=== PATIENT | female | born 1985 | race Hispanic/Latino ===

== ENCOUNTER 2016-07-04 19:17 | Emergency (ER) | payer MEDICAID, SELFPAY ==
[2016-07-04] MEDS ORDERED: Morphine Sulfate 2 MG/ML SYRINGE ONE ×2 (19:34→20:15)
[2016-07-04] MEDS ORDERED: Ondansetron HCl/PF 4 MG/2 ML Vial ONE (19:34)
[2016-07-04 19:49] LABS: #Basophils 0.1 thou/uL (0.0-0.2); #Eosinphils 0.1 thou/uL (0.0-0.7); #Lymphocytes 1.9 thou/uL (1.20-3.40); #Monocytes 0.6 thou/uL (0.11-0.59); #Neutrophils 8.8 thou/uL (1.40-6.50); %Basophils 0.5 % (0.0-1.0); %Eosinophils 1.1 % (0.0-10.0); %Monocytes 5.4 % (0.0-10.0); Hematocrit 33.7 % (36.0-47.0); Mean Platelet Volume 6.2 fL (7.4-10.4); Red Blood Cell (RBC) Count 3.91 mill/uL (4.20-5.40); White Blood Cell (WBC) Count 11.5 thou/uL (4.8-10.8)
[2016-07-04 20:06] LABS: ALT (SGPT) 129 U/L (0-55); AST (SGOT) 95 U/L (5-34); Alkaline Phosphatase 89 U/L (40-150); Anion Gap 14 mmol/L (10-20); BUN (Urea Nitrogen) 13 mg/dL (7.0-18.7); Bilirubin, Total 1.5 mg/dL (0.2-1.2); Calc. Creatinine Clearance 0 mL/min (70-130); Calcium 9.9 mg/dL (7.8-10.44); Carbon Dioxide 23 mmol/L (22-29); Chloride 103 mmol/L (98-107); Estimated GFR-MDRD Greater than 90; Globulin 3.4 g/dL (2.4-3.5); Protein, Total 7.6 g/dL (6.0-8.3)
[2016-07-04 20:35] LABS: Bilirubin Negative (Negative); Blood, Urine Moderate (Negative); Glucose, Urine (Dipstick) Negative (Negative); Ketone, Urine Negative (Negative); Nitrite Negative (Negative); Protein, Urine (Dipstick) > or equal to 300 mg/dL (Neg-Trace); Urobilinogen > or = 8.0 mg/dL (0.2-1.0)
[2016-07-04 20:42] LABS: RBC/HPF GREATER THAN 50-TNTC HPF (0-3); Squamous Epithelial 0-3 HPF (0-3); WBC/HPF 0-3 HPF (0-3)
[2016-07-04] MEDS ORDERED: Ketorolac Tromethamine 30 MG/ML VIAL ONE (20:56)
[2016-07-04] MEDS ORDERED: fentaNYL 50 mcg/hour Patch TD SCH (21:15)
--- NOTE | 2016-07-04 22:33 | ERRECORD ---
[facility] EMERGENCY RECORD HPI PELVIC PAIN (19:37 WMEI) CHIEF COMPLAINT: Patient presents for evaluation of pelvic pain. HISTORIAN: History provided by patient, dx with stage 4 cervical cancer recently has not started trt hop.4 days ago for uncontrolled pain has po morphine [place] rx but not helping. LOCATION: Symptoms are localized, most severe in the pelvic region. QUALITY: Pain is dull in nature. TIME COURSE: Gradual onset of symptoms, 1, days priror to arrival, There has been no change in the patient's symptoms over time. ASSOCIATED WITH: No associated fever, Associated with nausea. EXACERBATED BY: Patient's condition exacerbated by nothing. RELIEVED BY: Patient's condition relieved by nothing. ROS (19:39 WMEI) CONSTITUTIONAL: Historian denies fever, reports lethargy. EYES: Historian denies eye pain, denies eye discharge. ENT: Historian denies otalgia, denies rhinorrhea, denies sore throat. CARDIOVASCULAR: Historian denies chest pain, no radiation. RESPIRATORY: Historian denies cough, denies shortness of breath. GI: Historian reports abdominal pain, reports appetite changes, reports constipation. GENITOURINARY FEMALE: Historian denies dysuria, denies urgency. MUSCULOSKELETAL: Historian reports back pain, denies joint stiffness, denies joint swelling. SKIN: Historian denies skin changes, denies skin lesions. NEUROLOGIC: Historian denies confusion, denies focal weakness, denies mental status changes, denies paralysis. PSYCHIATRIC: Historian denies alcohol abuse, denies drug abuse. PAST MEDICAL HISTORY MEDICAL HISTORY: Notes: stage 4 cervical ca. (19:41 WMEI) FEMALE SURGICAL HISTORY: Surgical history of appendectomy, Surgical history of tubal ligation. (19:44 WMEI) PSYCHIATRIC HISTORY: not currently under outpatient psychiatric treatment, no history of suicidal ideations. (21:56 WMEI) FAMILY HISTORY: Family istory is not significant. (21:57 WMEI) KNOWN ALLERGIES No Known Drug Allergies (Unconfirmed) traMADol: Reaction: Rash, Severity: Moderate, Source: Patient CURRENT MEDICATIONS promethazine: TABLET : Strength - 25 mg : ORAL &a-1R&a+25V*p+0X*[id number]*c202B*c15G*c2P*p-0X&a-25V&a+1R Name: Pauline Marie : 1985 F30 MedRec: [id number] AcctNum: [id number] Prepared: Clarisa Jul 04, 2016 22:01 by Interface Page 1 of 3 pMD [facility] EMERGENCY RECORD Patient Dose: 1 tab(s) Oral every 6 hours.Last Taken: 07/04/16 1600. (20:26 CHOB) morphine: TABLET, EXTENDED RELEASE : Strength - 15 mg : ORAL Patient Dose: 1 tab(s) Oral 3 times a day.Last Taken: 07/04/16 1500. (20:27 CHOB) [place]: TABLET : Strength - 10 mg-325 mg : ORAL Patient Dose: 1-2 tab(s) Oral every 4 hours prn.Last Taken: 07/04/16 1600. (20:30 CHOB) VITAL SIGNS VITAL SIGNS: BP: 110/82, Pulse: 138, Resp: 18, Temp: 98.7 (Oral), Pain: 10 (Sharp), O2 sat: 99 on Room Air, Time: 07/04/2016 19:26. (19:26 CHOB) BP: 100/74, Pulse: 94, Resp: 20, O2 sat: 100 on Room Air, Time: 07/04/2016 20:29. (20:29 LSMI) BP: 115/86, Pulse: 100, Resp: 18, Pain: 8, O2 sat: 100 on Room Air, Time: 07/04/2016 21:00. (21:00 LSMI) BP: 111/78, Pulse: 95, Resp: 18, Temp: 98.5 (Oral), Pain: 7, O2 sat: 96 on Room Air, Time: 07/04/2016 21:32. (21:32 LSMI) PHYSICAL EXAM (19:40 WMEI) CONSTITUTIONAL: Vital signs reviewed. HEAD: Head exam included findings of head atraumatic, normocephalic. EYES: Extraocular muscles intact, Conjunctiva normal, Sclera normal. ENT: Ear exam normal, Nose exam normal, Pharynx exam normal. NECK: Neck exam included findings of normal range of motion, Trachea midline. RESPIRATORY CHEST: Breath sounds clear, Chest exam included findings of chest movement symmetrical. CARDIOVASCULAR: Cardiovascular exam included findings of heart rate regular rate and rhythm, Heart sounds normal. ABDOMEN FEMALE: Abdominal exam included findings of abdomen tender, diffusely, Bowel sounds, hypoactive. UPPER EXTREMITY: Upper extremity exam included findings of inspection normal, Range of motion normal, Motor strength normal. LOWER EXTREMITY: Lower extremity exam included findings of inspection normal, Range of motion normal, Motor strength normal. NEURO: Ishmael coma scale 15, Neuro exam findings include patient oriented to person, place and time, Speech normal, Gait normal. SKIN: Skin exam included findings of skin warm, dry, and normal in color. LYMPHATIC: Lymphatic exam normal. PSYCHIATRIC: Psychiatric exam included findings of patient oriented to person place and time, Normal affect, Judgment normal, Insight normal. &a-1R&a+25V*p+0X*[id number]*c202B*c15G*c2P*p-0X&a-25V&a+1R Name: Pauline Marie : 1985 F30 MedRec: [id number] AcctNum: [id number] Prepared: Clarisa Jul 04, 2016 22:01 by Interface Page 2 of 3 pMD [facility] EMERGENCY RECORD MEDICATION ADMINISTRATION SUMMARY Drug Name: Dilaudid injection, Dose Ordered: 1 mg, Route: IV Push, Status: Ordered, Time: 20:37 07/04/2016, Drug Name: Duragesic, Dose Ordered: 50 mcg, Route: Transdermal, Status: Given, Time: 21:20 07/04/2016, Drug Name: Toradol injection, Dose Ordered: 30 mg, Route: IV Push, Status: Given, Time: 20:59 07/04/2016, Drug Name: morphine intravenous, Dose Ordered: 6 mg, Route: IV Push, Status: Given, Time: 20:17 07/04/2016, Drug Name: *sodium chloride 0.9 % intravenous, Dose Ordered: 1 L, Route: IV Fluid Infusion, Status: Given, Time: 19:52 07/04/2016, Drug Name: morphine intravenous, Dose Ordered: 5 mg, Route: IV Push, Status: Given, Time: 19:47 07/04/2016, Drug Name: Zofran intravenous, Dose Ordered: 4 mg, Route: IV Push, Status: Given, Time: 19:45 07/04/2016, *Additional information available in notes, Detailed record available in Medication Service section. PROBLEM LIST No recorded problems DIAGNOSIS (21:32 WMEI) FINAL: PRIMARY: cancer pain. PRESCRIPTION No recorded prescriptions DISPOSITION PATIENT: Disposition Type: Discharge, Disposition: *Discharge Home. (21:32 WMEI) Call Back Status: 1 - First call attempted, Patient left the department. (21:54 LSMI) August: KODY=JHOAN Chester, Marla LSMI=JEFFREY Downey Leah WMEI=DO Yan William &a-1R&a+25V*p+0X*[id number]*c202B*c15G*c2P*p-0X&a-25V&a+1R Name: Pauline Marie : 1985 F30 MedRec: [id number] AcctNum: [id number] Prepared: Clarisa Jul 04, 2016 22:01 by Interface Page 3 of 3 pMD MTDD
--- NOTE | 2016-07-04 22:44 | PICIS ---
[facility] EMERGENCY RECORD TRIAGE (19:28 CHOB) TRIAGE NOTES: vaginal pain worsened today. (19:28 CHOB) PATIENT: Zip Code: [address]. (19:57) NAME: Pauline Marie, AGE: 30, GENDER: female, : Sat 1985, TIME OF GREET: Sun Jul 04, 2016 19:18, PREFERRED LANGUAGE: Telugu, RACE: or , ETHNICITY: or , ECODE BILLING MAP: [facility], SSN: [id number], KG WEIGHT: 51.71 (est.), PHONE: , , , PERSON ID: [id number], PCP: susie. (19:28 CHOB) PAYMENT: SJ[facility] Self Pay. (20:33) COMPLAINT: vaginal pain. (19:28 CHOB) ADMISSION: URGENCY: 3 Urgent, ADMISSION SOURCE: Home, TRANSPORT: CAR, BED: ER -04. (19:28 CHOB) PROVIDERS: TRIAGE NURSE: Marla Chester RN. (19:28 CHOB) VITAL SIGNS: BP 110/82, Pulse 138, Resp 18, Temp 98.7, (Oral), Pain 10, (Sharp), O2 Sat 99, on Room Air, Time 07/04/2016 19:26. (19:26 CHOB) KNOWN ALLERGIES No Known Drug Allergies (Unconfirmed) traMADol: Reaction: Rash, Severity: Moderate, Source: Patient CURRENT MEDICATIONS promethazine: TABLET : Strength - 25 mg : ORAL Patient Dose: 1 tab(s) Oral every 6 hours.Last Taken: 07/04/16 1600. (20:26 CHOB) morphine: TABLET, EXTENDED RELEASE : Strength - 15 mg : ORAL Patient Dose: 1 tab(s) Oral 3 times a day.Last Taken: 07/04/16 1500. (20:27 CHOB) Sugar Tree: TABLET : Strength - 10 mg-325 mg : ORAL Patient Dose: 1-2 tab(s) Oral every 4 hours prn.Last Taken: 07/04/16 1600. (20:30 CHOB) VITAL SIGNS VITAL SIGNS: BP: 110/82, Pulse: 138, Resp: 18, Temp: 98.7 (Oral), Pain: 10 (Sharp), O2 sat: 99 on Room Air, Time: 07/04/2016 19:26. (19:26 CHOB) BP: 100/74, Pulse: 94, Resp: 20, O2 sat: 100 on Room Air, Time: 07/04/2016 20:29. (20:29 LSMI) BP: 115/86, Pulse: 100, Resp: 18, Pain: 8, O2 sat: 100 on Room Air, Time: 07/04/2016 21:00. (21:00 LSMI) BP: 111/78, Pulse: 95, Resp: 18, Temp: 98.5 (Oral), Pain: 7, O2 sat: 96 on Room Air, Time: 07/04/2016 21:32. (21:32 LSMI) NURSING PROCEDURE: COMMUNICATIONS (20:38 LSMI) &a-1R&a+25V*p+0X*e2635C*c202B*c15G*c2P*p-0X&a-25V&a+1R Name: Pauline Marie David : 1985 F30 MedRec: [id number] AcctNum: [id number] Prepared: Clarisa Jul 04, 2016 22:07 by Interface Page 1 of 8 D [facility] EMERGENCY RECORD COMMUNICATIONS: Notes: PTS ONCOLOGIST CALLED. DR GOLD. CALLED DIRECTLY ON HER CELL PHONE. NURSING PROCEDURE: DISCHARGE NOTE (21:41 LSMI) DISCHARGE: Patient discharged to home, ambulating with assistance, family driving, accompanied by //partner, Summary of Care printed/ provided, Transition record given to patient, Discharge instructions given to patient, Complex discharge teaching performed, by CRISTEL CHESTER RN ANGELLA DOWNEY BOTTOM WHEELER, Above person(s) verbalized understanding of discharge instructions and follow-up care, Patient treated and evaluated by physician, Notes: PT DC'D WITH INSTRUCTIONS GIVEM TO PT AND SPOUSE WHO BOTH VERBALIZE UNDERSTANDING OF INSTRUCTIONS. DURAGESIC PATCH 50MCG/HR IN PLACE TO RGHT SHOULDER ON DC. NO DISTRESS IS NOTED. NURSING PROCEDURE: IV PATIENT IDENITIFIER: Patient actively involved in identification process, Patient's identity verified by patient stating name, Patient's identity verified by patient stating date, Patient's identity verified by hospital ID bracelet, Patient's identity verified by family member. (19:45 LSMI) IV SITE 1: IV therapy indicated for hydration, IV therapy indicated for medication administration, IV established, to the right wrist, using a 20 gauge catheter, in one attempt, Saline lock established, Flushed with normal saline (mls): 10, Notes: IV STARTED BY CRISTEL CHESTER RN. (19:45 LSMI) FOLLOW-UP SITE 1: IV discontinued, due to patient being discharged, catheter intact. (21:41 LSMI) NURSING PROCEDURE: NURSE NOTES (20:15 LSMI) NURSES NOTES: Notes: ASSISTED PT UP TO BATHROOM TO VOID WITHOUT DIFFICULTY. BACK TO BED. PT STATES LITTLE RELIEF FROM IVPAIN MED. DR KAHN. NURSING PROCEDURE: URINE COLLECTION (20:12 LSMI) PATIENT IDENTIFIER: Patient actively involved in identification process, Patient's identity verified by patient stating name, Patient's identity verified by patient stating date, Patient's identity verified by hospital ID paul, Patient's identity verified by family member. URINE COLLECTION FEMALE: Urine collection indicated for hematuria with clots, Urine collected by mid-stream clean catch, Output amount (mL) 50, urine red in color, and bloody, Specimen labeled in the presence of the patient and sent to lab, Specimen obtained for culture labeled in the presence of the patient and sent to lab. ORDER DETAILS Order Name: CBC with Differential, Status: Active, Time: 19:33 07/04/2016, User: MARIAELENA, &a-1R&a+25V*p+0X*t0800Z*c202B*c15G*c2P*p-0X&a-25V&a+1R Name: Pauline Marie : 1985 F30 MedRec: [id number] AcctNum: [id number] Prepared: Clarisa Jul 04, 2016 22:07 by Interface Page 2 of 8 pMD [facility] EMERGENCY RECORD - Ordered for: DO Yan William, - Entered by: DO Yan William - Clarisa Jul 04, 2016 19:33, - Quantity: 1, Order Name: Comprehensive Metabolic Panel, Status: Active, Time: 19:33 07/04/2016, User: MARIAELENA, - Ordered for: DO Yan William, - Entered by: DO Yan William - [place] Jul 04, 2016 19:33, - Quantity: 1, Order Name: SALINE LOCK, Status: Done, Time: 19:35 07/04/2016, User: KODY, - Ordered for: DO Yan William, - Entered by: DO Yan William - [place] Jul 04, 2016 19:33, - Quantity: 1, Order Name: Urinalysis with Microscopic, Status: Active, Time: 19:33 07/04/2016, User: [facility], - Ordered for: DO Yan William, - Entered by: DO Yan William - [place] Jul 04, 2016 19:33, - Quantity: 1. MEDICATION ADMINISTRATION SUMMARY Drug Name: Dilaudid injection, Dose Ordered: 1 mg, Route: IV Push, Status: Ordered, Time: 20:37 07/04/2016, Drug Name: Duragesic, Dose Ordered: 50 mcg, Route: Transdermal, Status: Given, Time: 21:20 07/04/2016, Drug Name: Toradol injection, Dose Ordered: 30 mg, Route: IV Push, Status: Given, Time: 20:59 07/04/2016, Drug Name: morphine intravenous, Dose Ordered: 6 mg, Route: IV Push, Status: Given, Time: 20:17 07/04/2016, Drug Name: *sodium chloride 0.9 % intravenous, Dose Ordered: 1 L, Route: IV Fluid Infusion, Status: Given, Time: 19:52 07/04/2016, Drug Name: morphine intravenous, Dose Ordered: 5 mg, Route: IV Push, Status: Given, Time: 19:47 07/04/2016, Drug Name: Zofran intravenous, Dose Ordered: 4 mg, Route: IV Push, Status: Given, Time: 19:45 07/04/2016, *Additional information available in notes, Detailed record available in Medication Service section. MEDICATION SERVICE Dilaudid injection: Order: Dilaudid injection (hydromorphone HCl) - Dose: 1 mg : IV Push POTENTIAL ALLERGY REACTION: 'traMADol [tramadol/tramadol HCl]' - tolerated before Schedule: Now Ordered by: Regino Yan DO Entered by: Regino Yan DO [place] Jul 04, 2016 20:37 , Acknowledged by: Marla Chester RN [place] Jul 04, 2016 20:38. Duragesic: Order: Duragesic (fentanyl) - Dose: 50 mcg : Transdermal Schedule: Now &a-1R&a+25V*p+0X*s3336K*c202B*c15G*c2P*p-0X&a-25V&a+1R Name: Pauline Marie : 1985 F30 MedRec: [id number] AcctNum: [id number] Prepared: Clarisa Jul 04, 2016 22:07 by Interface Page 3 of 8 pMD [facility] EMERGENCY RECORD Ordered by: Regino Yan DO Entered by: DO Clarisa Rodrigues Jul 04, 2016 20:47 , Acknowledged by: JHOAN Ochoa Jul 04, 2016 20:54 Documented as given by: JHOAN Ochoa Jul 04, 2016 21:20 Patient, Medication, Dose, Route and Time verified prior to administration. Medication applied transdermally topically, Amount given: 50MCG, Administration of this medication is documented elsewhere in chart, Skin cleansed prior to administration, Correct patient, time, route, dose and medication confirmed prior to administration, Patient advised of actions and side-effects prior to administration, Allergies confirmed and medications reviewed prior to administration, Advised not to ambulate without assistance, Patient in position of comfort, Side rails up, Cart in lowest position, Family at bedside, Call light in reach. : Follow Up : Response assessment performed, No signs or symptoms of allergic reaction noted, No change in pain, No change in symptoms, DURAGESIC PATCH 50MCG/HR INTACT TO R BACK ON DC. TIMED AND DATED. (21:41 LSMI) morphine intravenous: Order: morphine intravenous (morphine sulfate) - Dose: 5 mg : IV Push POTENTIAL ALLERGY REACTION: 'traMADol [tramadol/tramadol HCl]' - pt takes morphine regularly Schedule: Now Ordered by: Regino Yan DO Entered by: DO Clarisa Rodrigues Jul 04, 2016 19:35 , Acknowledged by: JHOAN Ochoa Jul 04, 2016 19:36 Documented as given by: JHOAN Ochoa Jul 04, 2016 19:47 Patient, Medication, Dose, Route and Time verified prior to administration. Amount given: 5mg, IV SITE #1 IVP, initial medication, Slowly, Pre-administration assessment shows O2 saturation reading 99%, Pre-administration assessment shows O2 AMT: R.A., Pre-administration assessment shows on room air, Awake and alert- acceptable, Connections checked prior to administration, Line traced prior to administration, Catheter placement confirmed via flush prior to administration, IV site without signs or symptoms of infiltration during medication administration, No swelling during administration, No drainage during administration, IV flushed after administration, Correct patient, time, route, dose and medication confirmed prior to administration, Patient advised of actions and side-effects prior to administration, Allergies confirmed and medications reviewed prior to administration, Patient in position of comfort, Side rails up, Cart in lowest position, Family at bedside, Call light in reach, continuous pulse oximeter finger probe in place. pain to vagina/low pelvic pain 04/05. morphine intravenous: Order: morphine intravenous (morphine sulfate) - Dose: 6 mg : IV Push POTENTIAL ALLERGY REACTION: 'traMADol [tramadol/tramadol HCl]' - takes as outpt &a-1R&a+25V*p+0X*b9070H*c202B*c15G*c2P*p-0X&a-25V&a+1R Name: Pauline Marie David : 1985 F30 MedRec: [id number] AcctNum: [id number] Prepared: Clarisa Jul 04, 2016 22:07 by Interface Page 4 of 8 D [facility] EMERGENCY RECORD Schedule: Now Ordered by: Regino Yan DO Entered by: DO Clarisa Rodrigues Jul 04, 2016 20:15 Documented as given by: JHOAN Ochoa Jul 04, 2016 20:17 Patient, Medication, Dose, Route and Time verified prior to administration. Amount given: 6mg, IV SITE #1 IVP, subsequent different medication, Slowly, Pre-administration assessment shows O2 saturation reading 99%, Pre-administration assessment shows O2 AMT: R.A., Pre-administration assessment shows on room air, Awake and alert- acceptable, Connections checked prior to administration, Line traced prior to administration, Catheter placement confirmed via flush prior to administration, IV site without signs or symptoms of infiltration during medication administration, No swelling during administration, No drainage during administration, IV flushed after administration, Correct patient, time, route, dose and medication confirmed prior to administration, Patient advised of actions and side-effects prior to administration, Allergies confirmed and medications reviewed prior to administration, Patient in position of comfort, Side rails up, Cart in lowest position, Family at bedside, Call light in reach. sodium chloride 0.9 % intravenous: Order: sodium chloride 0.9 % intravenous (0.9 % sodium chloride) - Dose: 1 L : IV Fluid Infusion Notes: (Bolus) Ordered by: Regino Yan DO Entered by: Regino Yan DO [place] Jul 04, 2016 19:33 , Acknowledged by: Marla Chester RN [place] Jul 04, 2016 19:36 Documented as given by: Marla Chester RN [place] Jul 04, 2016 19:52 Patient, Medication, Dose, Route and Time verified prior to administration. Amount given: 1 liter, IV SITE #1 IV fluids established for hydration, IV SITE #1 into right forearm, IV SITE #1 1st bag hung, amount 1 Liter hung, IV SITE #1 bolus of 1000 ml established, via primary tubing, Connections checked prior to administration, Line traced prior to administration, Catheter placement confirmed via flush prior to administration, IV site without signs or symptoms of infiltration during medication administration, No swelling during administration, No drainage during administration, IV flushed after administration, Correct patient, time, route, dose and medication confirmed prior to administration, Patient advised of actions and side-effects prior to administration, Allergies confirmed and medications reviewed prior to administration, Patient in position of comfort, Side rails up, Cart in lowest position, Family at bedside, Call light in reach. : Follow Up : Response assessment performed, No signs or symptoms of allergic reaction noted, _IV SITE #1:_, IV fluid infusion discontinued, on [place] Jul 04, 2016 21:00, Total fluid hydration time IV site 1 1 hour, 10 minutes, ., Total amount infused: 1000, IV Line flushed after administration. (21:00 LSMI) Toradol injection: Order: Toradol injection (ketorolac &a-1R&a+25V*p+0X*a8979B*c202B*c15G*c2P*p-0X&a-25V&a+1R Name: Pauline Marie : 1985 F30 MedRec: [id number] AcctNum: [id number] Prepared: [place] Jul 04, 2016 22:07 by Interface Page 5 of 8 pMD [facility] EMERGENCY RECORD tromethamine) - Dose: 30 mg : IV Push Schedule: Now Ordered by: Regino Yan DO Entered by: DO Clarisa Rodrigues Jul 04, 2016 20:56 Documented as given by: JHOAN Ochoa Jul 04, 2016 20:59 Patient, Medication, Dose, Route and Time verified prior to administration. Amount given: 30MG, IV SITE #1 IVP, initial medication, Slowly, Connections checked prior to administration, Line traced prior to administration, Catheter placement confirmed via flush prior to administration, IV site without signs or symptoms of infiltration during medication administration, No swelling during administration, No drainage during administration, IV flushed after administration, Correct patient, time, route, dose and medication confirmed prior to administration, Patient advised of actions and side-effects prior to administration, Allergies confirmed and medications reviewed prior to administration, Patient in position of comfort, Side rails up, Cart in lowest position, Family at bedside, Call light in reach. Zofran intravenous: Order: Zofran intravenous (ondansetron HCl) - Dose: 4 mg : IV Push Schedule: Now Ordered by: Regino Yan DO Entered by: DO Clarisa Rodrigues Jul 04, 2016 19:35 , Acknowledged by: JHOAN Ochoa Jul 04, 2016 19:36 Documented as given by: JHOAN Ochoa Jul 04, 2016 19:45 Patient, Medication, Dose, Route and Time verified prior to administration. Amount given: 4mg, IV SITE #1 IVP, initial medication, Slowly, Connections checked prior to administration, Line traced prior to administration, Catheter placement confirmed via flush prior to administration, IV site without signs or symptoms of infiltration during medication administration, No swelling during administration, No drainage during administration, IV flushed after administration, Correct patient, time, route, dose and medication confirmed prior to administration, Patient advised of actions and side-effects prior to administration, Allergies confirmed and medications reviewed prior to administration, Patient in position of comfort, Side rails up, Cart in lowest position, Family at bedside, Call light in reach. HPI PELVIC PAIN (19:37 WMEI) CHIEF COMPLAINT: Patient presents for evaluation of pelvic pain. HISTORIAN: History provided by patient, dx with stage 4 cervical cancer recently has not started trt hop.4 days ago for uncontrolled pain has po morphine Sugar Tree rx but not helping. LOCATION: Symptoms are localized, most severe in the pelvic region. QUALITY: Pain is dull in nature. TIME COURSE: Gradual onset of symptoms, 1, days priror to arrival, There has been no change in the patient's symptoms over time. ASSOCIATED WITH: No associated fever, &a-1R&a+25V*p+0X*g0553Y*c202B*c15G*c2P*p-0X&a-25V&a+1R Name: Pauline Marie : 1985 F30 MedRec: [id number] AcctNum: [id number] Prepared: Clarisa Jul 04, 2016 22:07 by Interface Page 6 of 8 pMD [facility] EM[facility]GENCY RECORD Associated with nausea. EXACERBATED BY: Patient's condition exacerbated by nothing. RELIEVED BY: Patient's condition relieved by nothing. ROS (19:39 WMEI) CONSTITUTIONAL: Historian denies fever, reports lethargy. EYES: Historian denies eye pain, denies eye discharge. ENT: Historian denies otalgia, denies rhinorrhea, denies sore throat. CARDIOVASCULAR: Historian denies chest pain, no radiation. RESPIRATORY: Historian denies cough, denies shortness of breath. GI: Historian reports abdominal pain, reports appetite changes, reports constipation. GENITOURINARY FEMALE: Historian denies dysuria, denies urgency. MUSCULOSKELETAL: Historian reports back pain, denies joint stiffness, denies joint swelling. SKIN: Historian denies skin changes, denies skin lesions. NEUROLOGIC: Historian denies confusion, denies focal weakness, denies mental status changes, denies paralysis. PSYCHIATRIC: Historian denies alcohol abuse, denies drug abuse. PAST MEDICAL HISTORY MEDICAL HISTORY: Notes: stage 4 cervical ca. (19:41 WMEI) FEMALE SURGICAL HISTORY: Surgical history of appendectomy, Surgical history of tubal ligation. (19:44 WMEI) PSYCHIATRIC HISTORY: not currently under outpatient psychiatric treatment, no history of suicidal ideations. (21:56 WMEI) FAMILY HISTORY: Family istory is not significant. (21:57 WMEI) PHYSICAL EXAM (19:40 WMEI) CONSTITUTIONAL: Vital signs reviewed. HEAD: Head exam included findings of head atraumatic, normocephalic. EYES: Extraocular muscles intact, Conjunctiva normal, Sclera normal. ENT: Ear exam normal, Nose exam normal, Pharynx exam normal. NECK: Neck exam included findings of normal range of motion, Trachea midline. RESPIRATORY CHEST: Breath sounds clear, Chest exam included findings of chest movement symmetrical. CARDIOVASCULAR: Cardiovascular exam included findings of heart rate regular rate and rhythm, Heart sounds normal. ABDOMEN FEMALE: Abdominal exam included findings of abdomen tender, diffusely, Bowel sounds, hypoactive. UPPER EXTREMITY: Upper extremity exam included findings of inspection normal, Range of motion normal, Motor strength normal. &a-1R&a+25V*p+0X*q0353W*c202B*c15G*c2P*p-0X&a-25V&a+1R Name: Pauline Marie : 1985 F30 MedRec: [id number] AcctNum: [id number] Prepared: Clarisa Jul 04, 2016 22:07 by Interface Page 7 of 8 pMD [facility] EMERGENCY RECORD LOWER EXTREMITY: Lower extremity exam included findings of inspection normal, Range of motion normal, Motor strength normal. NEURO: Ishmael coma scale 15, Neuro exam findings include patient oriented to person, place and time, Speech normal, Gait normal. SKIN: Skin exam included findings of skin warm, dry, and normal in color. LYMPHATIC: Lymphatic exam normal. PSYCHIATRIC: Psychiatric exam included findings of patient oriented to person place and time, Normal affect, Judgment normal, Insight normal. EVENTS TRANSFER: Triage to Emergency Emergency Room -04. (Clarisa Jul 04, 2016 19:28 CHOB) Removed from Emergency Emergency Room -04. (21:54 LSMI) PROBLEM LIST No recorded problems DIAGNOSIS (21:32 WMEI) FINAL: PRIMARY: cancer pain. DISPOSITION PATIENT: Disposition Type: Discharge, Disposition: *Discharge Home. (21:32 WMEI) Call Back Status: 1 - First call attempted, Patient left the department. (21:54 LSMI) INSTRUCTION (21:33 WMEI) DISCHARGE: PAIN CHRONIC. SPECIAL: Follow-up with your PCP/oncologist. PRESCRIPTION No recorded prescriptions IMAGING (21:42 LSMI) *DISCHARGE INSTRUCTIONS RECEIPT: Image captured from scanner. *SUPPLY CHARGE SHEET: Image captured from scanner. ADMIN (21:57 WMEI) DIGITAL SIGNATURE: DO Yan William. August: CHOB=JHOAN Chester, Marla LSMI=JEFFREY Downey Leah WMEI=DO Yan William &a-1R&a+25V*p+0X*k5124B*c202B*c15G*c2P*p-0X&a-25V&a+1R Name: Pauline Marie : 1985 F30 MedRec: [id number] AcctNum: [id number] Prepared: Clarisa Jul 04, 2016 22:07 by Interface Page 8 of 8 pMD MTDD
== END 2016-07-04 21:41 | disposition home or self-care (01) ==
LOC: BURERS 19:17
DX: G89.3 Neoplasm related pain (acute) (chronic) (principal); R10.2 Pelvic and perineal pain; Z90.49 Acquired absence of other specified parts of digestive tract; Z98.51 Tubal ligation status
CPT/HCPCS: 80053; 81001; 85025; 96361; 96374; 96375; J1170; J1885; J2270; J2405

== ENCOUNTER → 2016-08-14 | Emergency (ER) | payer MEDICAID ==
[~2016-08-14] MED LIST: Lorazepam 0.5 MG TAB ONE; Potassium Chloride 20 MEQ TAB ONE; hydrOXYzine 25 MG TAB ONE
[2016-08-14 03:54] LABS: #Lymphocytes 0.2 thou/uL (1.20-3.40); #Monocytes 0.2 thou/uL (0.11-0.59); #Neutrophils 1.5 thou/uL (1.40-6.50); %Eosinophils 1.4 % (0.0-10.0); %Monocytes 8.3 % (0.0-10.0); Hematocrit 26.7 % (36.0-47.0); Mean Platelet Volume 5.7 fL (7.4-10.4); Red Blood Cell (RBC) Count 3.18 mill/uL (4.20-5.40); White Blood Cell (WBC) Count 1.9 thou/uL (4.8-10.8)
[2016-08-14 04:04] LABS: Anion Gap 15 mmol/L (10-20); BUN (Urea Nitrogen) 7 mg/dL (7.0-18.7); Calc. Creatinine Clearance 0 mL/min (70-130); Carbon Dioxide 24 mmol/L (22-29); Chloride 106 mmol/L (98-107); Estimated GFR-MDRD Greater than 90
[2016-08-14 04:07] LABS: Bilirubin Negative (Negative); Blood, Urine Trace (Negative); Glucose, Urine (Dipstick) Negative (Negative); Ketone, Urine Negative (Negative); Nitrite Negative (Negative); Protein, Urine (Dipstick) Negative (Neg-Trace)
[2016-08-14 04:17] LABS: RBC/HPF 0-3 HPF (0-3); Squamous Epithelial 0-3 HPF (0-3); WBC/HPF 0-3 HPF (0-3)
--- NOTE | 2016-08-14 09:38 | CT ---
PRELIMINARY REPORT/[facility]/EMERGENCY AFTER-HOURS PROCEDURE: EXAM: CT Head Without Intravenous Contrast. CLINICAL HISTORY: 30 years old, female; Signs and symptoms; Numbness / parasthesia and weakness, extremity; Left; Rimma ent HX: Pt has stage 4 cervical cancer and is undergoing radiation to the pelvis. She woke up and her left arm and face were numb and she thought she had stroke. ; TECHNIQUE: Axial computed tomography images of the head/brain without intravenous contrast. COMPARISON: No relevant prior studies available. FINDINGS: Brain: Unremarkable. No hemorrhage. No significant white matter disease. No edema. Ventricles: Unremarkable. No ventriculomegaly. Bones/joints: Unremarkable. No acute fracture. Soft tissues: Unremarkable. Sinuses: Unremarkable as visualized. No acute sinusitis. Mastoid air cells: Unremarkable as visualized. No mastoid effusion. IMPRESSION: Normal head/brain CT. Thank you for allowing us to participate in the care of your patient. Dictated and Authenticated by: Jabari Austin MD 08/14/2016 4:01 AM Central Time ([place] \T\ [place]) FINAL REPORT CT OF THE BRAIN WITHOUT CONTRAST: DATE: 08/14/16. FINDINGS: A noncontrast CT was done for evaluation of left-sided tingling and numbness. The ventricles are no rmal in size with no shift. No intracranial bleeding, mass, or sign of stroke was found. The abad rium appears normal. The visible paranasal sinuses are clear. A recent MRI of the brain showed no sign of metastatic disease. IMPRESSION: No acute intracranial findings. Report in agreement with preliminary reading by [facility]. POS: HOME
== END ==
LOC: BURERS 03:08
DX: R20.2 Paresthesia of skin (principal); R06.89 Other abnormalities of breathing; E87.6 Hypokalemia; C53.9 Malignant neoplasm of cervix uteri, unspecified; Z79.891 Long term (current) use of opiate analgesic; Z79.899 Other long term (current) drug therapy
CPT/HCPCS: 36415; 70450; 80048; 81003; 81015; 85025

== ENCOUNTER 2019-02-10 07:31 | Emergency (ER) | payer MEDICAID ==
[2019-02-10 07:51] LABS: Bilirubin Small (Negative); Blood, Urine Trace (Negative); Clarity Clear (Clear); Glucose, Urine (Dipstick) Negative (Negative); Leukocyte Negative (Negative); Nitrite Negative (Negative); Pregnancy Test - Urine (BHCG) Negative (Negative); Pregu Control Background? CLEAR/WHITE (CLR/WHITE); Pregu Control Bar Appear? YES (CONTROL BAR); Protein, Urine (Dipstick) 30 mg/dL (Neg-Trace); Urobilinogen 0.2 mg/dL (Less than 2)
[2019-02-10 07:56] LABS: Bacteria/HPF 3+ HPF (None Seen); RBC/HPF 0-3 HPF (0-3); Squamous Epithelial 0-3 HPF (0-3); WBC/HPF 0-3 HPF (0-3)
[2019-02-10 07:57] LABS: Mucous/LPF 1+ LPF (<2+)
[2019-02-10] MEDS ORDERED: Magnesium Citrate 300 ML BOT ONE (08:42)
--- NOTE | 2019-02-10 09:27 | CT ---
CT ABDOMEN AND PELVIS WITHOUT CONTRAST: HISTORY: Pelvis and right-sided abdominal pain. Stage IV cervical cancer, treated with chemo and radiation th [facility]erny in 2017. COMPARISON: 09/16/2016 FINDINGS: Absence of oral and IV contrast reduces the sensitivity of the exam, particularly for evaluation of s olid organs involved. The lung bases are clear. No free air or free fluid is seen in the abdomen or pelvis. No calcified gallstones are seen. There is a punctate calculus in the right kidney. No calculi are seen in the l eft kidney, either ureter, or the urinary bladder. No hydroureteronephrosis is seen on either side. The small bowel loops are not abnormally dilated. A uterus is present. No definite evidence of appe ndicitis is seen. No osteolytic or osteoblastic lesions are seen. IMPRESSION: Nonobstructing punctate right renal calculus. POS: [facility]
== END 2019-02-10 08:45 | disposition home or self-care (01) ==
LOC: BURERS 07:31
DX: R10.9 Unspecified abdominal pain (principal)
CPT/HCPCS: 74176; 81003; 81015; 81025

== ENCOUNTER 2019-07-26 17:09 | Emergency (ER) | payer OTHER ==
[2019-07-26 17:44] LABS: #Lymphocytes 1.3 thou/uL (1.20-3.40); #Monocytes 0.3 thou/uL (0.11-0.59); #Neutrophils 7.4 thou/uL (1.40-6.50); %Basophils 0.3 % (0.0-1.0); %Eosinophils 0.1 % (0.0-10.0); %Lymphocytes 14.2 % (21.0-51.0); %Monocytes 3.1 % (0.0-10.0); %Neutrophils 82.3 % (42.0-75.0); Hemoglobin 12.9 g/dL (12.0-16.0); Mean Corpuscular HGB CONC 32.8 g/dL (32.0-36.0); Mean Corpuscular Hemoglobin 29.1 pg (27.0-31.0); Mean Corpuscular Volume 88.7 fL (78.0-98.0); Mean Platelet Volume 8.6 fL (7.4-10.4); Platelet Count 202 thou/uL (130-400); RBC Distribution Width 12.3 % (11.5-14.5); Red Blood Cell (RBC) Count 4.43 mill/uL (4.20-5.40)
[2019-07-26 18:02] LABS: ALT (SGPT) 127 U/L (8-55); AST (SGOT) 131 U/L (5-34); Albumin 4.6 g/dL (3.5-5.0); Alcohol Less than 10 mg/dL (Less than 10); Alkaline Phosphatase 105 U/L (40-110); Anion Gap 17 mmol/L (10-20); BUN (Urea Nitrogen) 14 mg/dL (7.0-18.7); Calc. Creatinine Clearance 0 mL/min (70-130); Calcium 9.7 mg/dL (7.8-10.44); Carbon Dioxide 24 mmol/L (22-29); Chloride 104 mmol/L (98-107); Estimated GFR-MDRD 76; Globulin 3.2 g/dL (2.4-3.5); Glucose 118 mg/dL (70-105); INR-International Normal Ratio 1.5; Potassium 3.6 mmol/L (3.5-5.1); Protein, Total 7.8 g/dL (6.0-8.3); Prothrombin Time 18.3 SEC (12.0-14.7); Salicylate Less than 8.0 mg/dL (15.0-30.0); Sodium 141 mmol/L (136-145)
[2019-07-26 18:03] LABS: PTT 33.4 SEC (22.9-36.1)
[2019-07-26 18:06] LABS: Bilirubin Small (Negative); Blood, Urine Negative (Negative); Clarity Clear (Clear); Glucose, Urine (Dipstick) Negative (Negative); Leukocyte Negative (Negative); Nitrite Negative (Negative); Protein, Urine (Dipstick) 100 mg/dL (Neg-Trace)
[2019-07-26 18:07] LABS: Pregnancy Test - Urine (BHCG) Negative (Negative); Pregu Control Background? CLEAR/WHITE (CLR/WHITE); Pregu Control Bar Appear? YES (CONTROL BAR); Specific Gravity 1.041 (1.002-1.036)
[2019-07-26 18:10] LABS: Bacteria/HPF Rare-Few HPF (None Seen); Mucous/LPF 4+ LPF (<2+); RBC/HPF 0-3 HPF (0-3); Squamous Epithelial 0-3 HPF (0-3); WBC/HPF 0-3 HPF (0-3)
[2019-07-26] MEDS ORDERED: Ondansetron ODT 4 MG TAB ONE (18:10)
[2019-07-26 18:11] LABS: Amphetamine Not Detected (NotDetected); Barbiturates Screen Not Detected (NotDetected); Benzodiazepine Screen Not Detected (NotDetected); Cocaine Metabolite Screen Not Detected (NotDetected); Medtox Control Line Valid? VALID (VALID); Methadone Not Detected (NotDetected); Methamphetamine Not Detected (NotDetected); Opiate Screen Not Detected (NotDetected); Oxycodone Screen Not Detected (NotDetected); Phencyclidine (PCP) Not Detected (NotDetected); THC/Cannabinoid Screen Not Detected (NotDetected); Tricyclic Screen Detected (NotDetected)
[2019-07-26] MEDS ORDERED: Acetylcysteine 20% 200 MG/ML 30 ML VIAL ONE (18:18)
[2019-07-26] MEDS ORDERED: Acetylcysteine (ACETADOTE) 20% 200 MG/ML (30 ML VIAL) ONE ×2 (18:18→18:21)
== END 2019-07-26 19:15 | disposition short-term general hospital (02) ==
LOC: BURERS 17:09
DX: T39.1X2A Poisoning by 4-Aminophenol derivatives, intentional self-harm, initial encounter (principal); R11.2 Nausea with vomiting, unspecified; F32.9 Major depressive disorder, single episode, unspecified; E05.90 Thyrotoxicosis, unspecified without thyrotoxic crisis or storm; Z87.891 Personal history of nicotine dependence
CPT/HCPCS: 80053; 80306; 80307; 81003; 81015; 81025; 84443; 85025; 85610; 85730; 96365; J0132; J7608; Q0162

== ENCOUNTER 2020-06-09 16:08 | Emergency (ER) | payer OTHER ==
[2020-06-09 16:36] LABS: Bilirubin Negative (Negative); Blood, Urine Trace (Negative); Clarity Clear (Clear); Glucose, Urine (Dipstick) Negative (Negative); Ketone, Urine Negative (Negative); Leukocyte Negative (Negative); Nitrite Negative (Negative); Protein, Urine (Dipstick) Trace mg/dL (Neg-Trace); Specific Gravity, Urine 1.025 (1.005-1.030); pH, Urine 8.5 (5.0-9.0)
[2020-06-09 16:40] LABS: Bacteria/HPF None Seen HPF (None Seen); Pregnancy Test - Urine (BHCG) Negative (Negative); Pregu Control Background? CLEAR/WHITE (CLR/WHITE); Pregu Control Bar Appear? YES (CONTROL BAR); RBC/HPF 0-3 HPF (0-3); Specific Gravity 1.025 (1.002-1.036); Squamous Epithelial 0-3 HPF (0-3); WBC/HPF None Seen HPF (0-3)
[2020-06-09] MEDS ORDERED: Acetaminophen 500 MG TAB ONE ×2 (16:42→17:26)
[2020-06-09] MEDS ORDERED: Ondansetron PF 4 MG/2 ML Vial ONE (16:42)
[2020-06-09 17:04] LABS: #Lymphocytes 0.7 thou/uL (1.20-3.40); #Monocytes 0.4 thou/uL (0.11-0.59); #Neutrophils 11.1 thou/uL (1.40-6.50); %Basophils 0.3 % (0.0-1.0); %Eosinophils 0.2 % (0.0-10.0); %Lymphocytes 5.8 % (21.0-51.0); %Monocytes 3.5 % (0.0-10.0); %Neutrophils 90.2 % (42.0-75.0); Hemoglobin 13.4 g/dL (12.0-16.0); Mean Corpuscular HGB CONC 32.3 g/dL (32.0-36.0); Mean Corpuscular Hemoglobin 28.8 pg (27.0-31.0); Mean Corpuscular Volume 89.2 fL (78.0-98.0); Mean Platelet Volume 8.4 fL (7.4-10.4); Platelet Count 204 thou/uL (130-400); RBC Distribution Width 11.5 % (11.5-14.5); Red Blood Cell (RBC) Count 4.66 mill/uL (4.20-5.40); White Blood Cell (WBC) Count 12.3 thou/uL (4.8-10.8)
[2020-06-09 17:18] LABS: ALT (SGPT) 14 U/L (8-55); AST (SGOT) 17 U/L (5-34); Albumin 4.6 g/dL (3.5-5.0); Alkaline Phosphatase 89 U/L (40-110); Anion Gap 15 mmol/L (10-20); BUN (Urea Nitrogen) 11 mg/dL (7.0-18.7); Bilirubin, Total 1.7 mg/dL (0.2-1.2); Calc. Creatinine Clearance 0 mL/min (70-130); Calcium 9.3 mg/dL (7.8-10.44); Carbon Dioxide 25 mmol/L (22-29); Chloride 102 mmol/L (98-107); Globulin 3.7 g/dL (2.4-3.5); Glucose 110 mg/dL (70-105); Lipase 6 U/L (8-78); Potassium 3.6 mmol/L (3.5-5.1); Protein, Total 8.3 g/dL (6.0-8.3); Sodium 138 mmol/L (136-145)
[2020-06-09] MEDS ORDERED: Ketorolac Tromethamine 30 MG/ML VIAL ONE (18:07)
[2020-06-10 06:42] LABS: SARS-CoV-2 MS2 Positive; SARS-CoV-2 N Gene Negative; SARS-CoV-2 S Gene Negative; SARS-CoV-2 by NAA Not Detected (NotDetected); SARS-CoV-2 orf1ab Negative
== END 2020-06-09 18:17 | disposition home or self-care (01) ==
LOC: BURERS 16:08
DX: R11.2 Nausea with vomiting, unspecified (principal); R51.9 Headache, unspecified; Z20.828 Contact with and (suspected) exposure to other viral communicable diseases; Z87.891 Personal history of nicotine dependence
CPT/HCPCS: 36415; 80053; 81003; 81015; 81025; 83690; 85025; 87635; 87804; 96374; 96375; J1885; J2405; U0003